=== PATIENT | male | born 1945 | race Caucasian/White ===

== ENCOUNTER 2018-10-22 12:19 | Emergency (ER) | payer MEDICARE ==
--- NOTE | 2018-10-22 14:39 | ED ---
GI/ HPI - HPI Summary HPI Summary: The pt is 73 y/o M who presents to [facility] c/o inability to urinate since 4 days ago. Pt noted diarrhea 5 days ago and believed it was an inflammatory issue, so for the past 3 days he took 1 aspirin every hour. Pt states that his home has electric, heat (coal stove) but no running water. He reports diarrhea and SOB but denies any body aches. Home Medications Medication Instructions Recorded Confirmed Type Aspirin TAB* [Aspirin 325 MG TAB*] 325 mg PO DAILY 10/22/18 10/22/18 History - History of Current Complaint Chief Complaint: EDGeneral Time Seen by Provider: 10/22/18 13:02 Stated Complaint: CONSTIPATION/UNABLE TO URINATE Hx Obtained From: Patient Onset/Duration: Started Days Ago, Still Present Timing: Lasting Days Current Severity: None - no pain just discomfort Pain Intensity: 0 Associated Signs and Symptoms: Positive: Diarrhea, Other: - SOB - Allergy/Home Medications Allergies/Adverse Reactions: Allergies Allergy/AdvReac Type Severity Reaction Status Date / Time No Known Allergies Allergy Verified 10/22/18 12:28 Home Medications: Home Medications Aspirin TAB* [Aspirin 325 MG TAB*] 325 mg PO DAILY 10/22/18 [History Confirmed 10/22/18] PMH/Surg Hx/FS Hx/Imm Hx Previously Healthy: No Endocrine/Hematology History: Denies: Hx Blood Disorders, Hx Diabetes, Other Endocrine/Hematological Disorders Cardiovascular History: Denies: Hx Aneurysm, Hx Angina, Hx Angioplasty, Hx Atrial Fibrillation, Hx Auto Implanted Cardiovert Defib, Hx Cardiac Arrest, Hx Cardiomegaly, Hx Congenital Heart Disease, Hx Congestive Heart Failure, Hx Coronary Artery Disease, Hx Deep Vein Thrombosis, Hx Embolism, Hx Hypercholesterolemia, Hx Hypotension, Hx Hypertension, Hx Myocardial Infarction, Hx Pacemaker/ICD, Hx Peripheral Vascular Disease, Hx Rheumatic Fever, Hx Syncope, Hx Valvular Heart Disease, Hx Supraventricular Ventricular Tachycardia, Other Cardiovascular Problems/Disorders Respiratory History: Denies: Hx Asthma, Hx Chronic Obstructive Pulmonary Disease (COPD) GI History: Reports: Other GI Disorders - Inguinal hernia - Cancer History Cancer Type, Location and Year: None reported - Surgical History Surgery Procedure, Year, and Place: Right inguinal hernia repair - 2011 Infectious Disease History: No Infectious Disease History: Denies: Traveled Outside the [place] in Last 30 Days - Family History Known Family History: Positive: Other - Mother lived to ; father was killed young in [place] Negative: Diabetes - Social History Occupation: Unemployed Lives: Alone Alcohol Use: None Hx Substance Use: No Hx Tobacco Use: Yes Type: Cigars - 2 per day Review of Systems Constitutional: Negative - Body aches Positive: Shortness Of Breath Positive: Diarrhea Positive: other - inability to urinate All Other Systems Reviewed And Are Negative: Yes Physical Exam - Summary Physical Exam Summary: Appearance: The patient is well-nourished in no acute distress and in no acute pain. Skin: The skin is warm and dry and skin color reflects adequate perfusion. HEENT: The head is normocephalic and atraumatic. The pupils are equal and reactive. The conjunctivae are clear and without drainage. Nares are patent and without drainage. Mouth reveals dry mucous membranes and the throat is without erythema and exudate. The external ears are intact. The ear canals are patent and without drainage. The tympanic membranes are intact. Neck: The neck is supple with full range of motion and non-tender. There are no carotid bruits. There is no neck vein distension. Respiratory: Tachypnic. Chest is non-tender. Lungs are clear to auscultation and breath sounds are symmetrical and equal. Cardiovascular: Heart is regular rate and rhythm. There is no murmur or rub auscultated. There is no peripheral edema and pulses are symmetrical and equal. Abdomen: Lower abdomen is tender. There are normal bowel sounds heard in all four quadrants and there is no organomegaly palpated. GIGU: Bladder scan shows 1 L. Musculoskeletal: There is no back tenderness noted. Extremities are non-tender with full range of motion. There is good capillary refill. There is no peripheral edema or calf tenderness elicited. Neurological: Patient is alert and oriented to person, place and time. The patient has symmetrical motor strength in all four extremities. Cranial nerves are grossly intact. Deep tendon reflexes are symmetrical and equal in all four extremities. Psychiatric: The patient has an appropriate affect and does not exhibit any anxiety or depression. Triage Information Reviewed: Yes Vital Signs On Initial Exam: Initial Vitals Temp Pulse Resp BP Pulse Ox 97.7 F 90 16 137/50 99 10/22/18 12:25 10/22/18 12:25 10/22/18 12:25 10/22/18 12:25 10/22/18 12:25 Vital Signs Reviewed: Yes Diagnostics - Vital Signs Vital Signs Temp Pulse Resp BP Pulse Ox 10/22/18 12:25 97.7 F 90 16 137/50 99 - Laboratory Result Diagrams: 10/22/18 16:13 10/22/18 16:13 Lab Statement: Any lab studies that have been ordered have been reviewed, and results considered in the medical decision making process. - Radiology CXR Radiology Interpretation Completed By: Radiologist Summary of Radiographic Findings: IMPRESSION: #. No evidence for acute intrathoracic disease. The ED physician reviewed this radiology report. - EKG 15:46 Cardiac Rate: NL - 81 bpm EKG Rhythm: Sinus Rhythm Summary of EKG Findings: Left Anterior Fascicular Block Re-Evaluation - Re-Evaluation First Eval Re-Evaluation Time: 17:02 Comment: Discussed the results and diposition plan with the pt. GIGU Course/Dx - Course Course Of Treatment: Mr. Cash presented looking somewhat toxic. He was to And reported that he has not urinated for 4 days ago because of the pain from his bladder and the felt that this might be inflammation of the prostate he took an aspirin an hour for at least 3 days. A quick bladder scan revealed that he had at least a liter in his bladder and a Gibson was placed. The Gibson immediately drained 1500 and an additional 700 cc came out over the course of the next couple of hours. It's blood-tinged. Labs were both difficult to obtain. When they did they returned showing a metabolic acidosis that that is anion gap and acute renal failure with a GFR of 6. His potassium was 5.8. I spoke with Dr. Woodall at [facility] as I was not sure if he were appropriate to alkalinize his urine with his acute renal failure and also wasn't sure whether we should treat the hyperkalemia given that he might be alkalinized. He recommended obtaining an ABG but also given insulin and glucose for the hyperkalemia and also alkalinizing his urine. At this point the patient has 2 lines and has a sodium bicarbonate drip running and we're arranging transfer to [facility]. I spoke with Dr. Flores here was not able to emergently dialyze him. - Diagnoses Provider Diagnoses: Salicylate intoxication, Acute renal failure (ARF), Urinary retention - Physician Notifications Discussed Care Of Patient With: Daniel Flores - Plastics Repairer Time Discussed With Above Provider: 16:52 Instructed by Provider To: Transfer - Critical Care Time Critical Care Time: 30-74 min Discharge - Sign-Out/Discharge Documenting (check all that apply): Patient Departure - Transfer - Discharge Plan Condition: Stable Disposition: TRANS HIGHER LVL OF CARE FAC Referrals: Care [facility] [Outside] - Billing Disposition and Condition Condition: STABLE Disposition: Trans Higher Lvl of Care Fac - Attestation Statements Document Initiated by Scribe: Yes Documenting Scribe: Vale Gonzalez Provider For Whom Patricia is Documenting (Include Credential): Dr. Fareed Pearl MD Scribe Attestation: Vale Aguirre scribed for Dr. Fareed Pearl MD on 10/22/18 at 1753. Scribe Documentation Reviewed: Yes Provider Attestation: The documentation as recorded by the scribe, Vale Gonzalez accurately reflects the service I personally performed and the decisions made by me, Dr. Fareed Pearl MD Status of Scribe Document: Viewed
[2018-10-22 16:27] LABS: ABS Basophils 0.1 10^3/ul (0-0.2); ABS Eosinophils 0 10^3/ul (0-0.6); ABS Lymphocytes 0.6 10^3/ul (1.0-4.8); ABS Monocytes 1.1 10^3/ul (0-0.8); ABS Neutrophils 8.1 10^3/ul (1.5-7.7); ABS Nucleated RBC 0 10^3/ul; Eosinophil % 0.3 %; Hematocrit 41 % (42-52); Hemoglobin 13.9 g/dl (14.0-18.0); Lymphocyte % 6.3 %; Mean Corpuscular HGB Conc 34 g/dl (31-36); Mean Corpuscular Hemoglobin 32 pg (27-31); Mean Corpuscular Volume 95 fL (80-94); Mean Platelet Volume 7.3 fL (7.4-10.4); Nucleated Red Blood Cells % 0; Platelet Count 142 10^3/ul (150-450); Red Blood Count 4.31 10^6/ul (4.00-5.40); Red Cell Distribution Width 13 % (10.5-15); White Blood Count 9.9 10^3/ul (3.5-10.8)
[2018-10-22 16:31] LABS: Urine Appearance Clear; Urine Blood 3+ (Negative); Urine Color Yellow; Urine Ketones 2+ (Negative); Urine Protein 1+(30 mg/dL) (Negative); Urine Red Blood Cell 3+(>10/hpf) (Absent); Urine Specific Gravity 1.015 (1.010-1.030); Urine Urobilinogen Negative (Negative); Urine White Blood Cell Absent (Absent)
[2018-10-22 16:42] LABS: EGFR Non-African American 6.2 (>60)
[2018-10-22] MEDS ORDERED: Dextrose 50% Syringe 50 ML* 25 GM/50 ML SYRINGE IV PUSH ONE (17:46)
[2018-10-22] MEDS ORDERED: Insulin REGULAR(*) 1 UNITS UNIT IV PUSH ONE (17:46)
[2018-10-22] MEDS ORDERED: Sodium Bicarbonate 8.4%* 50 ML SYRINGE IV ONE (17:46)
[2018-10-22] MEDS ORDERED: Sodium Bicarbonate 8.4% IV* 100 MEQ in D5W 1000 ML BAG* 1,000 ML IV ONE (17:57)
[2018-10-22 18:48] VITALS: BP 104/53
== END 2018-10-22 18:42 | disposition short-term general hospital (02) ==
LOC: ED 12:19
DX: T39.095A Adverse effect of salicylates, initial encounter (principal); Y92.9 Unspecified place or not applicable; J96.00 Acute respiratory failure, unspecified whether with hypoxia or hypercapnia; R33.9 Retention of urine, unspecified; I44.4 Left anterior fascicular block; E87.5 Hyperkalemia
CPT/HCPCS: 36415; 51702; 71045; 80053; 80307; 80320; 80329; 81003; 81015; 83605; 84443; 84484; 85025; 93005; 96374; 96375; 99285; G0480; J7060

== ENCOUNTER 2018-10-27 18:10 | Inpatient (IN) | payer MEDICARE ==
--- NOTE | 2018-10-27 18:58 | ED ---
Complex/Multi-Sys Presentation - HPI Summary HPI Summary: Patient is a 73 y/o M presenting to ED via ambulance from [facility] with complaints of BP of 69/50 per triage note. Patient is a poor historian. Patient came to [facility] five days ago with complaints of inability to urinate and abdominal pain. At the time, he reported that he had been taking 1 ASA every hour for three days due to pain. He was transferred to [place] with Dx of salicylate intoxication, acute renal failure, and urinary retention for possible dialysis. In the room, patient reports that he did not receive dialysis at [place] and was discharged today. Patient reports that he was sent to [facility] afterwards. He states he is still experiencing urine retention. He claims that he was straight cathetered 1400 today, claims he needs to get straight cathetered every six hours and that this has been going on for years. Patient is unclear as to why he was brought into ED. On triage, pain is denied, nothing is noted to aggravate/alleviate Sx. Home medications and allergies are reviewed. - History Of Current Complaint Chief Complaint: EDGeneral Time Seen by Provider: 10/27/18 18:21 Hx Obtained From: Patient Onset/Duration: Lasting Hours, Still Present Timing: Constant, Hours Severity Currently: None - pain denied Aggravating Factor(s): nothing Alleviating Factor(s): nothing Associated Signs And Symptoms: Positive: Other - patient reports urine retention and on triage it is reported that patient was hypotensive. - Allergies/Home Medications Allergies/Adverse Reactions: Allergies Allergy/AdvReac Type Severity Reaction Status Date / Time No Known Allergies Allergy Verified 10/22/18 12:28 Home Medications: Home Medications Amoxicillin/Clavulanate TAB* [Augmentin TAB 875*] 875 mg PO BID 10/27/18 [ History Confirmed 10/27/18] Finasteride TAB* [Proscar TAB*] 5 mg PO BEDTIME 10/27/18 [History Confirmed ] RX: Tamsulosin CAP* [Flomax CAP*] 0.4 mg PO BEDTIME 10/27/18 [History Confirmed 10/27/18] PMH/Surg Hx/FS Hx/Imm Hx Endocrine/Hematology History: Denies: Hx Blood Disorders, Hx Diabetes, Other Endocrine/Hematological Disorders Cardiovascular History: Denies: Hx Aneurysm, Hx Angina, Hx Angioplasty, Hx Atrial Fibrillation, Hx Auto Implanted Cardiovert Defib, Hx Cardiac Arrest, Hx Cardiomegaly, Hx Congenital Heart Disease, Hx Congestive Heart Failure, Hx Coronary Artery Disease, Hx Deep Vein Thrombosis, Hx Embolism, Hx Hypercholesterolemia, Hx Hypotension, Hx Hypertension, Hx Myocardial Infarction, Hx Pacemaker/ICD, Hx Peripheral Vascular Disease, Hx Rheumatic Fever, Hx Syncope, Hx Valvular Heart Disease, Other Cardiovascular Problems/Disorders Respiratory History: Denies: Hx Asthma, Hx Chronic Obstructive Pulmonary Disease (COPD) GI History: Reports: Other GI Disorders - Inguinal hernia - Cancer History Cancer Type, Location and Year: None reported - Surgical History Surgery Procedure, Year, and Place: Right inguinal hernia repair - 2012 Infectious Disease History: No Infectious Disease History: Denies: Traveled Outside the [place] in Last 30 Days - Family History Known Family History: Positive: Other - Mother lived to ; father was killed young in [place] Negative: Diabetes - Social History Alcohol Use: None Hx Substance Use: No Substance Use Type: Reports: None Hx Tobacco Use: Yes Smoking Status (MU): Never Smoked Tobacco Type: Cigars - 2 per day Review of Systems Positive: Other - hypotensive per triage Positive: other - urinary retention reported All Other Systems Reviewed And Are Negative: Yes Physical Exam - Summary Physical Exam Summary: Appearance: The patient is well-nourished in no acute distress and in no acute pain. Skin: The skin is warm and dry and skin color reflects adequate perfusion. HEENT: The head is normocephalic and atraumatic. The pupils are equal and reactive. The conjunctivae are clear and without drainage. Nares are patent and without drainage. Mouth reveals moist mucous membranes and the throat is without erythema and exudate. The external ears are intact. The ear canals are patent and without drainage. The tympanic membranes are intact. Neck: The neck is supple with full range of motion and non-tender. There are no carotid bruits. There is no neck vein distension. Respiratory: Chest is non-tender. Lungs are clear to auscultation and breath sounds are symmetrical and equal. and Cardiovascular: Heart is regular rate and rhythm. There is no murmur or rub auscultated. There is no peripheral edema and pulses are symmetrical and equal. Abdomen: The abdomen is soft and non-tender. There are normal bowel sounds heard in all four quadrants and there is no organomegaly palpated. Musculoskeletal: There is no back tenderness noted. Extremities are non-tender with full range of motion. There is good capillary refill. There is no peripheral edema or calf tenderness elicited. Neurological: Patient is alert and oriented to person, place and time. The patient has symmetrical motor strength in all four extremities. Cranial nerves are grossly intact. Deep tendon reflexes are symmetrical and equal in all four extremities. Psychiatric: The patient has an appropriate affect and does not exhibit any anxiety or depression. Triage Information Reviewed: Yes Vital Signs On Initial Exam: Initial Vitals Temp Pulse Resp BP Pulse Ox 98.7 F 75 18 106/58 99 10/27/18 18:22 10/27/18 18:22 10/27/18 18:22 10/27/18 18:22 10/27/18 18:22 Vital Signs Reviewed: Yes Diagnostics - Vital Signs Vital Signs Temp Pulse Resp BP Pulse Ox 10/27/18 18:22 98.7 F 75 18 106/58 99 - Laboratory Result Diagrams: 10/29/18 05:13 10/29/18 05:13 Lab Statement: Any lab studies that have been ordered have been reviewed, and results considered in the medical decision making process. - Radiology abdomen x-ray Radiology Interpretation Completed By: ED Physician Summary of Radiographic Findings: no acute process, pending official report Re-Evaluation - Re-Evaluation First Eval Re-Evaluation Time: 21:31 Comment: Nurse reports that patient passed a darkish stool in ED Complex Multi-Symp Course/Dx Course Of Treatment: Mr. Cash presents the same day he was dischared from [facility] after ARF caused by urinary retention and unintentional ASA OD. He never needed dialysis but is getting routine urinary catheterizations. He wnet to a NH and reportedly was hypotensive. He has no C/O here. He is non-toxic in appearance and has stable vitals here. While here he has spiked a temp and passed a bloddy stool. His labs reveal a small leukocytosis and elevated transaminases. He is pending U/S of his gallbladder and I have asked Dr. Monteiro of the Hospitalist Service to see him. - Diagnoses Provider Diagnoses: Elevated transaminase level, Fever - Physician Notifications Discussed Care Of Patient With: Elisa Monteiro Time Discussed With Above Provider: 22:15 Instructed by Provider To: Other - Patient's case was discussed with Dr. Monteiro at 2215, Dr. Monteiro accepts the patient for admission. Discharge - Sign-Out/Discharge Documenting (check all that apply): Patient Departure - admit - Discharge Plan Condition: Good Disposition: ADMITTED TO [facility] - Billing Disposition and Condition Condition: GOOD Disposition: Admitted to [facility] - Attestation Statements Document Initiated by Patricia: Yes Documenting Scribe: CARMEL BARR Provider For Whom Patricia is Documenting (Include Credential): ROBERT DURON MD Scribe Attestation: ICARMEL , scribed for ROBERT DURON MD on 10/29/18 at 1021. Scribe Documentation Reviewed: Yes Provider Attestation: The documentation as recorded by the CARMEL landry accurately reflects the service I personally performed and the decisions made by me, ROBERT DURON MD Status of Scribe Document: Viewed
[2018-10-27 19:30] LABS: ABS Basophils 0.1 10^3/ul (0-0.2); ABS Eosinophils 0 10^3/ul (0-0.6); ABS Lymphocytes 0.7 10^3/ul (1.0-4.8); ABS Monocytes 1.2 10^3/ul (0-0.8); ABS Neutrophils 10.9 10^3/ul (1.5-7.7); ABS Nucleated RBC 0 10^3/ul; Eosinophil % 0 %; Hematocrit 35 % (42-52); Hemoglobin 11.9 g/dl (14.0-18.0); Lymphocyte % 5.2 %; Mean Corpuscular HGB Conc 34 g/dl (31-36); Mean Corpuscular Hemoglobin 32 pg (27-31); Mean Corpuscular Volume 95 fL (80-94); Mean Platelet Volume 8.7 fL (7.4-10.4); Nucleated Red Blood Cells % 0; Platelet Count 235 10^3/ul (150-450); Red Blood Count 3.74 10^6/ul (4.00-5.40); Red Cell Distribution Width 13 % (10.5-15); White Blood Count 12.9 10^3/ul (3.5-10.8)
[2018-10-27 19:40] LABS: EGFR Non-African American 65.6 (>60)
[2018-10-27 20:33] LABS: Urine Appearance Cloudy; Urine Blood 1+ (Negative); Urine Color Amber; Urine Ketones Negative (Negative); Urine Protein Negative (Negative); Urine Red Blood Cell Trace(0-2/hpf) (Absent); Urine Specific Gravity 1.017 (1.010-1.030); Urine Urobilinogen Negative (Negative); Urine White Blood Cell Absent (Absent)
[2018-10-27] MEDS ORDERED: Acetaminophen TAB* 325 MG PO PRN (23:13)
--- NOTE | 2018-10-27 23:19 | ADMNOTE ---
Review of Systems - Measurements Intake and Output: Intake and Output Last 24 Hours 10/25/18 10/26/18 10/27/18 10/28/18 06:59 06:59 06:59 06:59 Weight 184 lb Objective Active Medications: Acetaminophen (Tylenol Tab*) 650 mg PO Q4H PRN PRN Reason: FEVER/PAIN Sodium Chloride (Ns 0.9% 1000 Ml*) 1,000 mls @ 100 mls/hr IV PER RATE JAMES Vital Signs - 8 hr 10/27/18 10/27/18 10/27/18 18:13 18:14 18:22 Temperature 98.7 F Pulse Rate 76 77 75 Respiratory 18 Rate Blood Pressure 106/58 106/58 (mmHg) O2 Sat by Pulse 95 94 99 Oximetry 10/27/18 10/27/18 10/27/18 18:44 19:00 19:14 Temperature Pulse Rate 78 75 73 Respiratory Rate Blood Pressure 111/60 112/56 (mmHg) O2 Sat by Pulse 95 96 93 Oximetry 10/27/18 10/27/18 10/27/18 19:42 19:44 20:00 Temperature 103.1 F Pulse Rate 73 72 Respiratory Rate Blood Pressure 106/57 (mmHg) O2 Sat by Pulse 94 96 Oximetry 10/27/18 10/27/18 10/27/18 20:14 20:41 20:57 Temperature 100.0 F Pulse Rate 73 Respiratory Rate Blood Pressure 119/74 112/56 (mmHg) O2 Sat by Pulse 96 Oximetry 10/27/18 10/27/18 21:00 21:14 Temperature Pulse Rate 72 71 Respiratory Rate Blood Pressure 123/54 (mmHg) O2 Sat by Pulse 96 96 Oximetry Result Diagrams: 10/27/18 19:12 10/27/18 19:12 Assess/Plan/Problems-Billing Assessment:
[2018-10-27] MEDS ORDERED: NS 0.9% 1000 ML* 400 ML IV SCH (23:45)
[2018-10-28] MEDS: Cefepime 2 GM in Dextrose(*) 2 GM/50 ML BAG IV SCH ×2 (00:24→13:20)
[2018-10-28] MEDS: NS 0.9% 1000 ML* 1,000 ML IV SCH ×2 (01:24→19:32)
[2018-10-28] MEDS: metroNIDAZOLE IV 500 MG/100ML* 500 MG/100 ML BAG IVPB SCH ×3 (01:36→17:23)
[2018-10-28] MEDS ORDERED: Iohexol 300* (CONTRAST) 10 ML SDV IV ONE (01:40)
[2018-10-28 02:13] LABS: Urine Appearance Cloudy; Urine Blood 2+ (Negative); Urine Color Yellow; Urine Ketones Negative (Negative); Urine Protein 1+(30 mg/dL) (Negative); Urine Red Blood Cell 3+(>10/hpf) (Absent); Urine Specific Gravity 1.019 (1.010-1.030); Urine Urobilinogen Negative (Negative); Urine White Blood Cell Trace(0-5/hpf) (Absent)
[2018-10-28] MEDS: KCL 10 MEQ/50 ML IVPREMIX* 10 MEQ/50 ML BAG IV SCH ×4 (02:45→10:11)
[2018-10-28 03:17] LABS: Hematocrit 33 % (42-52); Hemoglobin 11.1 g/dl (14.0-18.0)
[2018-10-28 05:58] LABS: ABS Basophils 0.1 10^3/ul (0-0.2); ABS Eosinophils 0 10^3/ul (0-0.6); ABS Lymphocytes 0.7 10^3/ul (1.0-4.8); ABS Monocytes 0.8 10^3/ul (0-0.8); ABS Neutrophils 7.8 10^3/ul (1.5-7.7); ABS Nucleated RBC 0 10^3/ul; Eosinophil % 0.1 %; Hematocrit 30 % (42-52); Hemoglobin 10.5 g/dl (14.0-18.0); Lymphocyte % 7.1 %; Mean Corpuscular HGB Conc 35 g/dl (31-36); Mean Corpuscular Hemoglobin 33 pg (27-31); Mean Corpuscular Volume 94 fL (80-94); Mean Platelet Volume 8.6 fL (7.4-10.4); Nucleated Red Blood Cells % 0; Platelet Count 206 10^3/ul (150-450); Red Blood Count 3.22 10^6/ul (4.00-5.40); Red Cell Distribution Width 13 % (10.5-15); White Blood Count 9.4 10^3/ul (3.5-10.8)
[2018-10-28 06:15] LABS: EGFR Non-African American 89.6 (>60)
--- NOTE | 2018-10-28 07:05 | HP ---
CC: [facility] Waldo * HISTORY AND PHYSICAL: DATE OF ADMISSION: 10/27/18 PRIMARY CARE PROVIDER: Mellissa Haas. ATTENDING PHYSICIAN WHILE IN THE HOSPITAL: Dr. Elisa Monteiro * (report dictated by Justino Salcedo NP). CHIEF COMPLAINT: 1. Hypotension. 2. Low-grade fever. HISTORY OF PRESENTING ILLNESS: Mr. Cash is a 73-year-old male patient who presented initially to [facility] on 10/22/18. He had been having a significant amount of abdominal discomfort. He was feeling constipated and he was having discomfort, anyway, he was taking aspirin every hour on the hour for the last few days prior to presentation to the ER. He was found to have salicylates poisoning and acute renal failure and was transferred to [facility] for further care and evaluation. While there, he was diagnosed with pneumonia and UTI. He was treated with antibiotics. He was actually discharged today and was sent to [facility] for rehab purposes. Unfortunately , when he got there was noted to have a significant amount of hypotension, his pressures apparently were in the 60s, although when he presented here blood pressures were in the 100 systolic, they were 130. While here, he was noted to have a fever of 100.4 and was noted to have a dark stool. He is also complaining of lower abdominal discomfort and pain. He was also found to have again low-grade fever. His white count was up again. In addition to this, his CRP was over 403. He is denying any chest pain or shortness of breath or cough. He again at times is confused, so he is not quite sure where he is. He stills thinks he is not sure of the hospital he is in. He is fixated on having squash and milk that caused his whole problem back 4 days prior to the 10/22/18 , but when I asked him if he is having any pain, he denies any chest pain, shortness of breath. Denies any abdominal discomfort. He says he does not feel nauseated. Again, there was concern in the ED because of the findings on labs, the low-grade fever and we were asked to evaluate for admission. PAST MEDICAL HISTORY: Again significant for: 1. BPH. 2. Recent salicylate overdose. 3. Recent pneumonia. 4. Recent admission for UTI. 5. Recent acute renal failure, now resolved. PAST SURGICAL HISTORY: He has had hernia repair. MEDICATIONS: His home meds according to discharge today include: 1. Finasteride 5 mg at bedtime. 2. Flomax 0.4 mg at bedtime. 3. Augmentin 1 tablet p.o. b.i.d. for 7 more days. ALLERGIES TO MEDICATIONS: No known drug allergies. FAMILY HISTORY: He says both his parents of old age. SOCIAL HISTORY: He says he does smoke cigars. He does not drink alcohol. The surrogate decision maker is not appointed at this point. REVIEW OF SYSTEMS: There is no documented fever. He denied having any significant weight changes. He denied having any double vision. There is no ear discharge. He is denying any rhinorrhea. No sore throat. No thyroid enlargement. Denied having any chest pain. There was no orthopnea. No nocturnal dyspnea. There was no abdominal pain. There was no nausea. There was no vomiting. No dysuria. No frequency. No seizure. No loss of consciousness. No pruritus and no skin ulcerations. Review of 14 systems completed, all others were negative. PHYSICAL EXAMINATION GENERAL: At this time, Mr. Cash is a 73-year-old male patient; he is sitting in the ED stretcher. He does not appear to be in any acute distress. He appears to be well nourished and well developed. VITAL SIGNS: Blood pressure now 123/54, pulse 71, respirations were 18, O2 sat 96%, his temperature was as high as 103.1. His blood pressure when he presented here was 137/50 and at the [facility] it was 88/40. HEENT: Head is atraumatic and normocephalic. Eyes: EOMs are intact. Sclerae were anicteric and not pale. Throat: Oral mucosa appears to be dry. No oropharyngeal erythema. NECK: Supple. LUNGS: Clear to auscultation. No wheezes, rales, or rhonchi. HEART: Sounds S1 and S2. He had a regular rate and rhythm. No murmurs, rubs, or gallops. ABDOMEN: Soft and flat. There was tenderness in the right lower quadrant and suprapubic area. Bowel sounds were present. EXTREMITIES: Pulses were 2+ throughout. He had no peripheral edema. He is moving all 4 extremities with 5/5 strength. NEUROLOGICAL: He is awake, he is alert. He is oriented to time. He is confused to place and oriented to himself. Speech is clear. Tongue is midline. He had no gross focal deficits. SKIN: Grossly intact. DIAGNOSTIC STUDIES/LAB DATA: Labs reveal a WBC of 12.9, RBC 3.79, hemoglobin 11.9, hematocrit 35, platelet count of 235. Sodium of 133, potassium of 3.4, chloride of 98, bicarb 28, BUN 20, creatinine 1.10, glucose 122, lactate 0.9, calcium 8.6. Total bili 1.0, AST 93, ALT 68, alk phos 164. CRP of 403. Albumin 3.2. Urine showed 1+ blood. Gallbladder ultrasound showed no sonographic findings that correlate with the patient's symptomatology. Old medical records were reviewed. ASSESSMENT AND PLAN: Mr. Cash is a 73-year-old male patient coming into the ER today after recently having a prolonged hospitalization at [facility]. He was evaluated here tonight and was noted to have a high-grade fever again, also to have a dark stool one time. He was also noted to have a white count of 12,000. There was concern for underlying infection. We were asked to evaluate for admission. He will be admitted under observation status for: 1. Systemic inflammatory response syndrome, possible sepsis. Again, unfortunately he is not tachycardic, but was concerning that he was hypotensive and he had such a high fever. His white count is mildly elevated. He recently did have pneumonia in the UA. It was noted here that he was in urinary retention. I am going to put the patient on cefepime and Flagyl. I am getting a CT of the abdomen and pelvis. We will panculture him. We will send off his urine for culture. We will get blood cultures, check chest x-ray. I will get the legionella antigen and Strep pneumo antigen. He is not really complaining of shortness of breath or cough, so I think pneumonia is less likely, but given his exam was clear as well, but again we will try to rule this source out as well. 2. Concern for melena. Again, he has had 1 episode of dark stool. His BUN is stable. His H and H is stable. I am going to repeat a serial H and H. He did not have any tarry stools again. I have ordered a Hemoccult for blood. We will continue to follow this. We will continue to follow his H and H, it is 11.9 today, it was 13.9 a few days ago when he was here. So I just will monitor this. If it continues to drop, I have a low threshold for PPI drip and GI consultation, but at this point I think we can monitor. 3. Benign prostatic hypertrophy. Continue medications as prescribed. I did note that he was in urinary retention that certainly could have been the source of the fever and the white count. I will place a catheter. We will continue monitor this closely. 4. Hypotension. This appears to have resolved with fluids. 5. DVT prophylaxis: I have ordered SCDs until we can rule out GI bleed. 6. Code status. Full code. 7. Fluid, electrolytes, and nutrition. He is n.p.o. pending the CT of the abdomen and pelvis. TIME SPENT: Time spent on the admission was 60 minutes, greater than half the time was spent [id number] with the patient obtaining my history and physical, other half time was spent going over the plan of the care with the patient and implementing the plan of care. I did discuss the plan of care with my attending, Dr. Monteiro; she is in agreement. JUSTINO SALCEDO NP [id number]/[facility] #: [id number] MTDD
--- NOTE | 2018-10-28 18:40 | PN ---
Subjective Date of Service: 10/28/18 Interval History: Fever improved.Mildly confused Objective Active Medications: Acetaminophen (Tylenol Tab*) 650 mg PO Q4H PRN PRN Reason: FEVER/PAIN Ceftriaxone Sodium (Rocephin Vial(*)) 1,000 mg IM Q24H JAMES Finasteride (Proscar Tab*) 5 mg PO BEDTIME JAMES Sodium Chloride (Ns 0.9% 1000 Ml*) 1,000 mls @ 100 mls/hr IV PER RATE JAMES Last Admin: 10/28/18 01:24 Dose: 100 mls/hr Azithromycin 500 mg/ Sodium (Chloride) 250 mls @ 250 mls/hr IVPB Q24H JAMES Tamsulosin HCl (Flomax Cap*) 0.4 mg PO BEDTIME [facility] Vital Signs - 8 hr 10/28/18 10/28/18 11:08 15:24 Temperature 100.7 F 99.1 F Pulse Rate 70 72 Respiratory 18 16 Rate Blood Pressure 111/55 119/44 (mmHg) O2 Sat by Pulse 98 97 Oximetry Oxygen Devices in Use Now: None Eyes: No Scleral Icterus Ears/Nose/Mouth/Throat: NL Teeth, Lips, Gums Neck: NL Appearance and Movements; NL JVP Respiratory: Symmetrical Chest Expansion and Respiratory Effort Cardiovascular: NL Sounds; No Murmurs; No JVD Abdominal: NL Sounds; No Tenderness; No Distention Neurological: Alert and Oriented x 3 Result Diagrams: 10/28/18 05:43 10/28/18 05:43 Microbiology and Other Data: Microbiology 10/28/18 01:35 Nasal Screen MRSA (PCR) - Final Nasal Mrsa Not Detected 10/27/18 19:50 Legionella Urinary Antigen - Final Urine Negative Legionella Antigen Streptococcus pneumoniae Ag Screen - Final Negative S. pneumo Antigen 10/28/18 01:20 Stool Occult Blood (GEO) - Final Stool 10/28/18 01:30 Influenza Types A,B Antigen - Final Nasal Specimen received for Influenza A/B Molecular testing Assess/Plan/Problems-Billing Assessment: - Patient Problems (1) Pneumonia Current Visit: Yes Status: Acute Code(s): J18.9 - PNEUMONIA, UNSPECIFIED ORGANISM SNOMED Code(s): 377959432 Comment: RLL infiltrate Will switch to Azithromycin and Ceftriaxone (2) SIRS (systemic inflammatory response syndrome) Current Visit: Yes Status: Acute Code(s): R65.10 - SIRS OF NON-INFECTIOUS ORIGIN W/O ACUTE ORGAN DYSFUNCTION SNOMED Code(s): 905314441 (3) SIRS (systemic inflammatory response syndrome) Current Visit: Yes Status: Acute Code(s): R65.10 - SIRS OF NON-INFECTIOUS ORIGIN W/O ACUTE ORGAN DYSFUNCTION SNOMED Code(s): 426609491 Comment: Sec to pneumonia Will await bloood urine sputum cx continue abx (4) Urinary retention Current Visit: Yes Status: Acute Code(s): R33.9 - RETENTION OF URINE, UNSPECIFIED SNOMED Code(s): 565514800 Comment: chronic prostate enlargement currently has jiménez (5) Hematuria Current Visit: Yes Status: Acute Code(s): R31.9 - HEMATURIA, UNSPECIFIED SNOMED Code(s): 15796055 Comment: recent aspirin overdose [place] tx to [facility] will check ANCA,JO Will check for urine proteinuria and if noted will do further w/u Also important to r/o bladder cancer will get cytology and could be from recent jiménez.if persistant will need further eval
[2018-10-28] MEDS ORDERED: cefTRIAXone VIAL(*) 1,000 MG VIAL IM SCH (19:00)
[2018-10-28] MEDS: cefTRIAXone* 1 GM in NS 0.9% 50 ML BAG IVPB SCH (19:35)
[2018-10-28] MEDS: Azithromycin IV(*) 500 MG in NS 0.9% 250 ML* 250 ML IVPB SCH (20:44)
[2018-10-28] MEDS: Tamsulosin CAP* 0.4 MG PO SCH (20:54)
[2018-10-28] MEDS: Finasteride TAB* 5 MG PO SCH (20:54)
[2018-10-29 05:33] LABS: ABS Basophils 0 10^3/ul (0-0.2); ABS Eosinophils 0 10^3/ul (0-0.6); ABS Lymphocytes 0.6 10^3/ul (1.0-4.8); ABS Monocytes 0.7 10^3/ul (0-0.8); ABS Neutrophils 7.8 10^3/ul (1.5-7.7); ABS Nucleated RBC 0 10^3/ul; Eosinophil % 0.2 %; Hematocrit 32 % (42-52); Hemoglobin 11.1 g/dl (14.0-18.0); Lymphocyte % 6.3 %; Mean Corpuscular HGB Conc 35 g/dl (31-36); Mean Corpuscular Hemoglobin 33 pg (27-31); Mean Corpuscular Volume 94 fL (80-94); Mean Platelet Volume 8.6 fL (7.4-10.4); Nucleated Red Blood Cells % 0; Platelet Count 243 10^3/ul (150-450); Red Blood Count 3.37 10^6/ul (4.00-5.40); Red Cell Distribution Width 13 % (10.5-15); White Blood Count 9.1 10^3/ul (3.5-10.8)
[2018-10-29 05:49] LABS: EGFR Non-African American 88.4 (>60)
[2018-10-29] MEDS: NS 0.9% 1000 ML* 1,000 ML IV SCH ×2 (11:03→23:49)
--- NOTE | 2018-10-29 15:18 | PN ---
Subjective Date of Service: 10/29/18 Interval History: Reports some improvement.Reports that he is tired of urinary retention and wants to get a TURP Objective Active Medications: Acetaminophen (Tylenol Tab*) 650 mg PO Q4H PRN PRN Reason: FEVER/PAIN Finasteride (Proscar Tab*) 5 mg PO BEDTIME [facility] Last Admin: 10/28/18 20:54 Dose: 5 mg Sodium Chloride (Ns 0.9% 1000 Ml*) 1,000 mls @ 100 mls/hr IV PER RATE [facility] Last Admin: 10/29/18 11:03 Dose: 100 mls/hr Azithromycin 500 mg/ Sodium (Chloride) 250 mls @ 250 mls/hr IVPB Q24H [facility] Last Admin: 10/28/18 20:44 Dose: 250 mls/hr Ceftriaxone Sodium 1 gm/ (Sodium Chloride) 50 mls @ 200 mls/hr IVPB Q24H [facility] Last Admin: 10/28/18 19:35 Dose: 200 mls/hr Tamsulosin HCl (Flomax Cap*) 0.4 mg PO BEDTIME [facility] Last Admin: 10/28/18 20:54 Dose: 0.4 mg Vital Signs - 8 hr 10/29/18 10/29/18 10/29/18 07:42 08:00 12:51 Temperature 98.5 F 99.5 F Pulse Rate 66 64 Respiratory 16 16 20 Rate Blood Pressure 100/55 99/46 (mmHg) O2 Sat by Pulse 94 95 Oximetry Oxygen Devices in Use Now: None Eyes: No Scleral Icterus Ears/Nose/Mouth/Throat: NL Teeth, Lips, Gums Neck: NL Appearance and Movements; NL JVP Respiratory: Symmetrical Chest Expansion and Respiratory Effort, Clear to Auscultation Cardiovascular: NL Sounds; No Murmurs; No JVD Abdominal: NL Sounds; No Tenderness; No Distention Extremities: - - edema present Skin: No Rash or Ulcers Neurological: Alert and Oriented x 3 Result Diagrams: 10/29/18 05:13 10/29/18 05:13 Microbiology and Other Data: Microbiology 10/28/18 01:35 Nasal Screen MRSA (PCR) - Final Nasal Mrsa Not Detected 10/27/18 19:50 Legionella Urinary Antigen - Final Urine Negative Legionella Antigen Streptococcus pneumoniae Ag Screen - Final Negative S. pneumo Antigen 10/28/18 01:20 Stool Occult Blood (GEO) - Final Stool 10/28/18 01:30 Influenza Types A,B Antigen - Final Nasal Specimen received for Influenza A/B Molecular testing Assess/Plan/Problems-Billing Assessment: - Patient Problems (1) Pneumonia Current Visit: Yes Status: Acute Code(s): J18.9 - PNEUMONIA, UNSPECIFIED ORGANISM SNOMED Code(s): 197679840 Comment: RLL infiltrate Will switch to Azithromycin and Ceftriaxone (2) SIRS (systemic inflammatory response syndrome) Current Visit: Yes Status: Acute Code(s): R65.10 - SIRS OF NON-INFECTIOUS ORIGIN W/O ACUTE ORGAN DYSFUNCTION SNOMED Code(s): 719927999 Comment: Sec to pneumonia Will await bloood urine sputum cx continue abx (3) Urinary retention Current Visit: Yes Status: Acute Code(s): R33.9 - RETENTION OF URINE, UNSPECIFIED SNOMED Code(s): 030356572 Comment: chronic prostate enlargement currently has jiménez will need op f/u with urology for further management bph?/ turp (4) Hematuria Current Visit: Yes Status: Acute Code(s): R31.9 - HEMATURIA, UNSPECIFIED SNOMED Code(s): 95873564 Comment: recent aspirin overdose [place] tx to [facility] will check ANCA,JO Will check for urine proteinuria and if noted will do further w/u Also important to r/o bladder cancer could be from recent traumatic jiménez insertion.if persistant will need further eval, urine cytology and ?cystoscopy.Also f/u on proteinuria to check if he needs further renal eval
[2018-10-29] MEDS: cefTRIAXone* 1 GM in NS 0.9% 50 ML BAG IVPB SCH (18:55)
[2018-10-29] MEDS: Azithromycin IV(*) 500 MG in NS 0.9% 250 ML* 250 ML IVPB SCH (20:06)
[2018-10-29] MEDS: Finasteride TAB* 5 MG PO SCH (20:06)
[2018-10-29] MEDS: Tamsulosin CAP* 0.4 MG PO SCH (20:06)
[2018-10-30 07:09] LABS: ABS Basophils 0.1 10^3/ul (0-0.2); ABS Eosinophils 0 10^3/ul (0-0.6); ABS Lymphocytes 0.7 10^3/ul (1.0-4.8); ABS Monocytes 0.6 10^3/ul (0-0.8); ABS Nucleated RBC 0 10^3/ul; Eosinophil % 0.3 %; Hematocrit 32 % (42-52); Hemoglobin 10.9 g/dl (14.0-18.0); Lymphocyte % 7.5 %; Mean Corpuscular HGB Conc 34 g/dl (31-36); Mean Corpuscular Hemoglobin 32 pg (27-31); Mean Corpuscular Volume 95 fL (80-94); Mean Platelet Volume 8.9 fL (7.4-10.4); Nucleated Red Blood Cells % 0.1; Platelet Count 261 10^3/ul (150-450); Red Blood Count 3.37 10^6/ul (4.00-5.40); Red Cell Distribution Width 14 % (10.5-15); White Blood Count 9.4 10^3/ul (3.5-10.8)
[2018-10-30 07:44] LABS: EGFR Non-African American 92.1 (>60)
[2018-10-30] MEDS: NS 0.9% 1000 ML* 1,000 ML IV SCH (14:08)
--- NOTE | 2018-10-30 16:54 | PN ---
Subjective Date of Service: 10/30/18 Interval History: Mr. Cash reports significant discomfort from the jiménez catheter with a sensation that he constantly needs to urinate. He denies other complaint including chest pain, SOB, nausea, or abdominal pain. Objective Active Medications: Acetaminophen (Tylenol Tab*) 650 mg PO Q4H PRN Finasteride (Proscar Tab*) 5 mg PO BEDTIME JAMES Sodium Chloride (Ns 0.9% 1000 Ml*) 1,000 mls @ 100 mls/hr IV PER RATE JAMES Azithromycin 500 mg/ Sodium (Chloride) 250 mls @ 250 mls/hr IVPB Q24H JAMES Ceftriaxone Sodium 1 gm/ (Sodium Chloride) 50 mls @ 200 mls/hr IVPB Q24H JAMES Tamsulosin HCl (Flomax Cap*) 0.4 mg PO BEDTIME JAMES Vital Signs: Temp Pulse Resp BP Pulse Ox 100.6 F 75 18 135/70 96 10/30/18 11:57 10/30/18 11:57 10/30/18 11:57 10/30/18 11:57 10/30/18 11:57 Oxygen Devices in Use Now: None Appearance: Male lying in bed in NAD Eyes: No Scleral Icterus Ears/Nose/Mouth/Throat: Mucous Membranes Moist Neck: Trachea Midline Respiratory: Symmetrical Chest Expansion and Respiratory Effort, Clear to Auscultation Cardiovascular: NL Sounds; No Murmurs; No JVD, No Edema Abdominal: NL Sounds; No Tenderness; No Distention Extremities: No Edema Skin: No Rash or Ulcers Neurological: Alert and Oriented x 3, NL Muscle Strength and Tone Nutrition: Taking PO's Result Diagrams: 10/30/18 06:40 10/30/18 09:17 Microbiology and Other Data: . Assess/Plan/Problems-Billing Assessment: Mr. Cash is a 73 yo M with a PMH of recent salicylate poisoning, acute renal failure, pneumonia and UTI treated at [facility] who was admitted on with hypotension, fever, and elevated CRP with suspected sepsis secondary to pneumonia. - Patient Problems (1) Sepsis Comment: - Resolved. - Sepsis suspected secondary to pneumonia (2) Pneumonia Comment: - RLL infiltrate - Continue Azithromycin and Ceftriaxone (3) Hematuria Comment: - Creatinine normal. Anemia stable. - ANCA, JO pending. - Will need follow up with urology for BPH, has chronic jiménez. Could be due to recent traumatic jiménez insertion. Also important to r/o bladder cancer - Continue tamsulosin and finasteride. (4) Urinary retention Comment: - Chronic, prostate enlargement - Had urinary retention on arrival back 10/22 and was discharged from [facility] with plan for intermittent straight cath, patient reported he had over a liter out with straight cath. Continue jiménez, will need close f/u with urology for further management (5) DVT prophylaxis Comment: - SCDs. (6) Full code status Comment: Status and Disposition: Inpatient. Anticipate discharge to [facility] if bed remains available.
[2018-10-30] MEDS: cefTRIAXone* 1 GM in NS 0.9% 50 ML BAG IVPB SCH (18:25)
[2018-10-30] MEDS: Azithromycin IV(*) 500 MG in NS 0.9% 250 ML* 250 ML IVPB SCH (19:21)
[2018-10-30] MEDS: Finasteride TAB* 5 MG PO SCH (20:13)
[2018-10-30] MEDS: Tamsulosin CAP* 0.4 MG PO SCH (20:13)
--- NOTE | 2018-10-31 08:40 | PN ---
Subjective Date of Service: 10/31/18 Interval History: Mr. Cash denies complaint and is eager for discharge to [facility]. He reports continuing to feel very weak and reluctant to work with physical therapy as he thinks it is "too much." He repeatedly states that he needs to "work on leg lifts in the bed." He denies chest pain, SOB, nausea, or abdominal pain. Objective Active Medications: Acetaminophen (Tylenol Tab*) 650 mg PO Q4H PRN Finasteride (Proscar Tab*) 5 mg PO BEDTIME JAMES Azithromycin 500 mg/ Sodium (Chloride) 250 mls @ 250 mls/hr IVPB Q24H JAMES Ceftriaxone Sodium 1 gm/ (Sodium Chloride) 50 mls @ 200 mls/hr IVPB Q24H JAMES Tamsulosin HCl (Flomax Cap*) 0.4 mg PO BEDTIME JAMES Vital Signs: Temp Pulse Resp BP Pulse Ox 98.5 F 70 16 134/58 96 10/31/18 07:51 10/31/18 07:51 10/31/18 07:51 10/31/18 07:51 10/31/18 07:51 Oxygen Devices in Use Now: None Appearance: Male lying in bed in NAD Eyes: No Scleral Icterus Ears/Nose/Mouth/Throat: Mucous Membranes Moist Neck: Trachea Midline Respiratory: Symmetrical Chest Expansion and Respiratory Effort, Clear to Auscultation Cardiovascular: NL Sounds; No Murmurs; No JVD, No Edema Abdominal: NL Sounds; No Tenderness; No Distention Extremities: No Edema Skin: No Rash or Ulcers Neurological: Alert and Oriented x 3, NL Muscle Strength and Tone Nutrition: Taking PO's Result Diagrams: 10/30/18 06:40 10/30/18 09:17 Microbiology and Other Data: . Assess/Plan/Problems-Billing Assessment: Mr. Cash is a 73 yo M with a PMH of recent salicylate poisoning, acute renal failure, pneumonia and UTI treated at [facility] who was admitted on with hypotension, fever, and elevated CRP with suspected sepsis secondary to pneumonia. - Patient Problems (1) Sepsis Comment: - Resolved. - Sepsis suspected secondary to pneumonia (2) Pneumonia Comment: - RLL infiltrate - Complete course of abx x 7 days (3) Hematuria Comment: - Creatinine normal. Anemia stable. - ANCA, JO pending. - Will need follow up with urology for BPH, has chronic jiménez. Could be due to recent traumatic jiménez insertion. Also important to r/o bladder cancer - Continue tamsulosin and finasteride. (4) Urinary retention Comment: - Chronic, prostate enlargement - Had urinary retention on arrival back 10/22 and was discharged from [facility] with plan for intermittent straight cath, patient reported he had over a liter out with straight cath. Continue jiménez, will need close f/u with urology for further management (5) DVT prophylaxis Comment: - SCDs. (6) Full code status Comment: Status and Disposition: Inpatient. Discharge to [facility].
[2018-10-31 11:47] VITALS: BP 134/51
--- NOTE | 2018-10-31 12:55 | DS ---
CC: [facility] * This discharge summary should serve as a history and physical for admission to [facility]. DATE OF ADMISSION: 10/28/2018. DATE OF DISCHARGE: 10/31/2018. ATTENDING PROVIDER: Dr. Lopez * (DICTATED BY HAIDER HOFFMANN NP) PRIMARY DIAGNOSES: 1. Sepsis. 2. Pneumonia. 3. Urinary retention. SECONDARY DIAGNOSES: 1. Recent admission to [facility] with salicylate poisoning, urinary retention, acute kidney injury with pneumonia, and UTI. 2. BPH. MEDICATIONS AT THE TIME OF DISCHARGE: 1. Finasteride 5 mg at bedtime. 2. Flomax 0.4 mg at bedtime. 3. Augmentin b.i.d. times 7 days. HOSPITAL COURSE: Mr. Cash is a 73-year-old male who was admitted to the hospital on 10/27/2018 with concern for hypotension. Please see the dictated history and physical from Justino Salcedo NP for complete details. In brief, the patient had just been discharged from [facility] after undergoing treatment for Salicylate poisoning, acute renal failure, sepsis with pneumonia, and urinary tract infection. He was on route to [facility] for rehabilitation when on arrival there it was noted that he was hypotensive with a blood pressure in the 60s. The patient was then transferred over to the emergency room for evaluation. He was found to have a low grade temperature to 100.4. He was not hypotensive on our evaluation. It was our suspicion that perhaps he had sepsis secondary to pneumonia based on an abnormal chest x-ray, although it could just be reflective of continued changes on the x-ray related to recent pneumonia treated at [facility]. In addition, the patient was noted to have urinary retention and a Gibson catheter was placed. The patient had urinary retention as well prior to his transfer to [facility] on 10/22/2018. Mr. Cash has been doing well. The remainder of his work-up included a gallbladder ultrasound that showed no sonographic findings to correlate with the patient's symptomatology; an abdomen/pelvis CT which showed "hepatomegaly, hepatic cysts, colonic diverticulosis, an enlarged prostate gland, small fat- containing right inguinal hernia, right lower lobe infiltrate, subsegmental atelectasis in the left lower lobe, and minimal bilateral pleural effusions." Mr. Cash has been doing well. He has remained afebrile. His vitals are stable. He is not tachycardic. He has had no further hypotension. He was treated with Ceftriaxone and Azithromycin while an inpatient. He is not hypoxic. He has no cough. It is suspected that perhaps Mr. Cash had early sepsis related to pneumonia. He has been doing well here and he is medically stable for discharged to [facility] for further rehabilitation. Plans will be for seven days further of Augmentin and treatment of his pneumonia. He will also need close follow-up with [facility] regarding urinary retention and history of BPH. DISPOSITION: To [facility]. DIET: Regular. ACTIVITY: As tolerated. FOLLOW-UP PLANS: Please follow-up with [facility] regarding urinary retention and need for Gibson. Approximately 60 minutes were spent in the discharge of this patient, more than half that time was spent with the patient at the bedside reviewing the events leading up to and during this hospitalization, performing the physical examination, and reviewing my plan of care. HAIDER HOFFMANN NP [id number]/[facility] #: [id number] SUJATHA
== END 2018-10-31 13:50 | DRG 871 ==
LOC: ED 18:10 → MEDTELE 23:12 → OBSVTOIN 10-28 14:17
PROVIDERS: ADMIT Internal Medicine; ATTEND Internal Medicine
DX: A41.9 Sepsis, unspecified organism (principal); J18.9 Pneumonia, unspecified organism; J98.11 Atelectasis; K92.1 Melena; N40.1 Benign prostatic hyperplasia with lower urinary tract symptoms; R33.8 Other retention of urine; I95.9 Hypotension, unspecified; R31.0 Gross hematuria; F17.290 Nicotine dependence, other tobacco product, uncomplicated; Z79.899 Other long term (current) drug therapy
CPT/HCPCS: 36415; 71045; 74018; 74177; 76705; 80048; 80053; 81003; 81015; 82043; 82272; 82570; 83516; 83605; 83690; 84156; 85014; 85018; 85025; 86038; 86140; 87040; 87086; 87641; 87899; 93005; 99285; A9270-GY; G8978-GP-CK; G8979-GP-CI; J0456; J0692; J0696; J3480; J3490; Q9967

== ENCOUNTER 2019-01-15 05:50 | Observation (INO) | payer MEDICARE ==
--- NOTE | 2019-01-12 13:54 | HP ---
CC: Dr. Daniel Bello, [facility] HISTORY AND PHYSICAL: DATE OF PLANNED ADMISSION AND SURGERY: 01/15/18 HISTORY OF PRESENT ILLNESS: Mr. Cash is a 73-year-old white male who is admitted with prostate enlargement and urinary retention for transurethral resection of the prostate. Mr. Cash was referred to our office about 1 month ago in urinary retention. At that time, he was found to have a large residual of about 600 cc. He underwent a cystoscopy, which showed a large obstructing prostate. He was given a trial of voiding and that was not successful. He had been maintained on tamsulosin and on finasteride and the urinary retention has persisted. Because of that finding, the patient is admitted for transurethral resection of the prostate. Past medical history and system review are detailed in his recent admissions to the hospital. The patient was admitted to [facility] in October 2018 with salicylate poisoning, urinary retention, and acute renal injury. He also at that time had pneumonia and urinary tract infection and was found to be in partial urinary retention. He was treated and his renal function recovered. He was also admitted to [facility] [place] [place] on 10/28/18 with hypotension and sepsis and it was felt possibly to be related to pneumonia. He ultimately did fine. He was reevaluated for this upcoming surgery at [facility] by Dr. Bello, was noted to be doing well and was cleared for surgery. The patient denies any cardiac or pulmonary diseases or symptoms. He has been fairly active. MEDICATIONS: His mediations are finasteride 5 mg, tamsulosin 0.4 mg, and Tylenol as needed. Smokes Cigars occasionally. No alcohol and no recreational drugs. ALLERGIES: He denies any allergies to medications. FAMILY HISTORY: Both parents of old age. PHYSICAL EXAMINATION GENERAL: He is a pleasant white male who looks older than his age. VITAL SIGNS: Blood pressure 120/70, pulse of 90, oxygen saturation 98% on room air. HEART: Regular and rhythmic. No murmurs. LUNGS: Clear. ABDOMEN: Soft. No masses, no tenderness and no CVA tenderness. EXTERNAL GENITALIA: He is circumcised. There are no penile lesions. Normal testes and no inguinal hernia. There is a Gibson catheter draining clear urine. RECTAL: Showed an enlarged, but not suspicious prostate. IMPRESSION: Urinary retention caused by prostate enlargement, on chronic catheter drainage. PLAN: For transurethral resection of the prostate. I discussed the operation in detail with the patient, some of the potential complications including infection, hematuria, possible recurrence of the urinary retention. All his questions were answered. [id number]/[facility] #: [id number] MTDD
[~2019-01-15 05:50] MED LIST: Buffered Lidocaine 1% SYRIN* 1 ML/SYRINGE INTRADERM ONE
[2019-01-15] MEDS ORDERED: Lactated Ringers 1000 ML Bag* 1,000 ML IV SCH (06:00)
[2019-01-15] MEDS ORDERED: Acetaminophen TAB* 325 MG PO ONE (06:00)
[2019-01-15] MEDS ORDERED: cefTRIAXone(*) 2 GM ADDV.VIAL IVPB ONE (06:55)
[2019-01-15] MEDS ORDERED: Acetaminophen TAB* 325 MG ONE (06:55)
[2019-01-15] MEDS ORDERED: Gentamicin ADULT (*) 180 MG in NS 0.9% 100 ML* 100 ML IVPB ONE (07:00)
[2019-01-15] MEDS ORDERED: Midazolam* 1 MG/ML 2 ML VIAL (2 MG) ONE (07:16)
[2019-01-15] MEDS ORDERED: fentaNYL* 50 MCG/ML 2 ML VIAL (100 MCG VIAL) ONE (07:16)
[2019-01-15] MEDS ORDERED: Famotidine IV* 10 MG/ML 2 ML (20 mg) ONE (07:29)
[2019-01-15] MEDS ORDERED: Lidocaine 2% PF * 5 ML VIAL ONE (07:34)
[2019-01-15] MEDS ORDERED: Propofol* 10 MG/ML 20 ML BTL ONE (07:53)
[2019-01-15] MEDS ORDERED: Dexamethasone IV* 4 MG/ML 1 ML (4 MG) ONE (07:53)
[2019-01-15] MEDS ORDERED: fentaNYL* 50 MCG/ML 2 ML VIAL (100 MCG VIAL) IV PRN (08:11)
[2019-01-15] MEDS ORDERED: DiMENhydriNATE IV* 50 MG/ML VIAL IV PUSH PRN (08:11)
[2019-01-15] MEDS ORDERED: Naloxone* 0.4 MG/ML 1 ML VIAL IV PRN (08:11)
[2019-01-15] MEDS ORDERED: PROCHLORPERAZINE INJ 5 MG/ML 2 ML VIAL IV PRN (08:11)
[2019-01-15] MEDS ORDERED: HYDROcodone/ACETAMIN 5-325 MG* 1 TAB PO PRN (08:11)
[2019-01-15] MEDS ORDERED: Levalbuterol 0.63MG/3ML NEB* UNIT OF USE INH PRN (08:11)
--- NOTE | 2019-01-15 10:54 | OP ---
CC: Dr. Daniel Bello, [facility] OPERATIVE REPORT: DATE OF OPERATION: 01/15/19 DATE OF : 45 SURGEON: Jose Carlos Vallejo MD. ANESTHESIOLOGIST: Dr. Jordon Sainz. ANESTHESIA: General. PRE-OP DIAGNOSES: 1. Urinary retention. 2. Benign prostatic hyperplasia. POST-OP DIAGNOSES: 1. Urinary retention. 2. Benign prostatic hyperplasia. OPERATIVE PROCEDURE: 1. Cystoscopy. 2. Transurethral resection of the prostate. INDICATION FOR PROCEDURE: Mr. 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 He went into urinary retention about 1 month ago. He had been maintained on tamsulosin and finasteride and failed trials of voiding. Cystoscopy showed a large obstructing prostate and heavy bladder trabeculations. Because of the above history and findings and the failure of medical treatment, TURP was advised and accepted. PATHOLOGY: At cystoscopy, the penile and bulbar urethra looked normal, no strictures were noted. The prostatic urethra measured 4 to 5 cm in length and there was significant degree of obstruction by trilobar hyperplasia of the prostate with a prominent median lobe and large obstructing lateral lobes. Examination of the bladder showed moderate diffuse trabeculations. There was catheter reaction as expected. There were no suspicious of bladder lesion seen. No calculi or diverticula were noted. The prostate adenoma was large and vascular. DESCRIPTION OF PROCEDURE: After successful general anesthesia, the patient was placed in the lithotomy position and was prepped and draped for cystoscopy. Cystoscopy was performed. The findings in the prostatic urethra and in the bladder were noted. The resectoscope was then introduced inside the bladder. Mannitol sorbitol solution was used for irrigation, and the inflow and outflow were adjusted to avoid over distention of the bladder. Resection of the median lobe was performed first resecting it until the identification of the bladder neck muscle fibers. Resection of the protruding portions of the lateral lobes inside the bladder was then performed. The resectoscope was then positioned in the mid prostatic urethra and the prostate adenoma was resected circumferentially. The resectoscope was then positioned more distally and additional tissue was resected circumferentially. The resectoscope was then positioned at the level of the veru. The left lobe was resected starting at 5 o'clock and proceeding anteriorly. The right lobe was resected next. The apical tissue and the anterior tissue were resected last. The limits of the resection were the bladder neck proximally, the verumontanum distally and the capsule circumferentially. Because of the size of the prostate and its vascularity, and 1 hour after the resection was started , there was still residual adenomatous tissue; however, it was felt not to be obstructing and the prostatic urethra was felt to be open enough to allow successful voiding postop. Extensive fulguration of all the bleeders was carried. The bladder was irrigated and all the prostate chips were removed. At the completion of the resection, the prostatic urethra looked open. There were minimal cuts through the capsule, but no significant open sinuses. All the significant bleeders were controlled. The external sphincter, the veru, the capsule, the bladder, and the ureteral orifices were all intact. After making sure that there were no residual prostate chips and there was adequate hemostasis, the resectoscope was removed and a size 22-Frisian Gibson catheter was passed inside the bladder and the balloon inflated with 40 cc of water. The catheter was placed under gentle traction and taped to the right thigh of the patient. Irrigation yielded pinkish returns. The patient tolerated the procedure well and left the operating room in good condition. The blood loss was estimated at about 100 cc. The specimen was prostate chips. The inflow fluid were all accounted for indicating no absorption of the irrigation fluid. [id number]/[facility] #: [id number] [facility]ERYusuf
[2019-01-15] MEDS ORDERED: oxyCODONE/Acetamin 5/325 MG* TAB PO PRN (11:28)
[2019-01-15] MEDS ORDERED: Lidocaine 2% JELLY* 6 ML JELLY TOPICAL PRN (11:29)
[2019-01-15] MEDS: Lactated Ringers 1000 ML Bag* 1,000 ML IV SCH (17:50)
[2019-01-15] MEDS ORDERED: Finasteride TAB* 5 MG PO SCH (19:00)
[2019-01-16] MEDS: Lactated Ringers 1000 ML Bag* 1,000 ML IV SCH (00:33)
[2019-01-16] MEDS ORDERED: oxyCODONE/Acetamin 5/325 MG* TAB PO PRN (04:00)
[2019-01-16] MEDS ORDERED: cefTRIAXone(*) 1 GM in NS 0.9% 50 ML* 50 ML IVPB ONE (07:00)
[2019-01-16 07:52] VITALS: BP 144/25
--- NOTE | 2019-01-16 08:39 | DS ---
DISCHARGE SUMMARY: DATE OF ADMISSION: 01/15/19 DATE OF DISCHARGE: 01/16/19 FINAL DIAGNOSES: 1. Urinary retention. 2. Benign prostatic hyperplasia. OPERATIONS: Cystoscopy, transurethral resection of the prostate on 01/15/18. HISTORY: Mr. Cash is a 73-year-old white male who went into urinary retention about 2 months ago. He was placed on tamsulosin and finasteride and failed trials of voiding. Cystoscopy showed a large obstructing prostate. Because of the persistent urinary retention, TURP was advised and accepted. PAST MEDICAL HISTORY AND SYSTEM REVIEW: The patient was recently admitted with salicylate poisoning that resulted in acute renal injury. He had recovered from it after treatment. He had history of urinary tract infections that were treated. He denies any cardiac or pulmonary diseases or symptoms. MEDICATIONS: His only medications are: 1. Finasteride 5 mg daily. 2. Tamsulosin 0.4 mg daily. ALLERGIES: Patient denies any allergies to medications. PREOPERATIVE PHYSICAL EXAM: Normal. His prostate was large, but nonsuspicious. PREOPERATIVE LAB WORK: Also within normal. He was started preoperatively on Cipro. COURSE IN HOSPITAL: Patient was admitted the morning of his surgery. He underwent an uncomplicated transurethral resection of the prostate under general anesthesia. He was kept overnight for observation. He did very well postop and he did very well and by the morning his urine was clear and his vital signs were normal and was making good urine output. Patient is discharged home in good medical condition. DISCHARGE MEDICATIONS: 1. Finasteride 5 mg daily. 2. Augmentin 875 mg twice a day based on his preoperative urine culture. The plan is to see the patient in the office 1 week postoperatively for Gibson catheter removal. Pathology showed the resected prostate tissue measured 41 cc, and was benign. [id number]/[facility] #: [id number] [facility]
== END 2019-01-16 10:08 | disposition home or self-care (01) ==
LOC: OR 05:50 → SSU 09:42
PROVIDERS: ADMIT Urology; ATTEND Urology
DX: N40.1 Benign prostatic hyperplasia with lower urinary tract symptoms (principal); R33.8 Other retention of urine; Z72.0 Tobacco use
CPT/HCPCS: 88305; 90471; 90686; 96374; 96375; A9270-GY; G0008; G0378; J0696; J1100; J1580; J2250; J2704; J3010